=== PATIENT | female | born 1940 | race Two or more races ===

== ENCOUNTER 2017-08-26 14:00 | Emergency (ER) | payer OTHER ==
[2017-08-26 14:30] VITALS: BMI 21.2
--- NOTE | 2017-08-26 14:50 | PDOC ---
History of Present Illness - General History Source: Patient Exam Limitations: No Limitations - History of Present Illness Initial Comments: 08/26/17 15:07 The patient is a 77 year old female with signficant history of hypertension, DM , Alzheimer's dementia, sent from [place] for a cyst on her labia. No fever or chills. No nausea or vomiting. The patient is a poor historian and unable to provide remainder of history. PCP: Dr. Otis Baires <Manju Judge - Last Filed: 08/26/17 19:08> <Ashleigh Naqvi - Last Filed: 08/26/17 19:16> <August Torres - Last Filed: 08/26/17 19:54> - General Chief Complaint: Pain Stated Complaint: PAIN Time Seen by Provider: 08/26/17 14:41 Past History <Manju Judge - Last Filed: 08/26/17 19:08> <Ashleigh Naqvi - Last Filed: 08/26/17 19:16> - Past Medical History CVA: No COPD: No Dementia: Yes (Alzheimers) Diabetes: Yes (IDDM) HTN: Yes Hypercholesterolemia: Yes Other medical history: O2 2L Prn as per [place] records. - Suicide/Smoking/Psychosocial Hx Smoking History: Never smoked Have you smoked in the past 12 months: No Information on smoking cessation initiated: No Hx Alcohol Use: No Drug/Substance Use Hx: No Substance Use Type: None <August Torres - Last Filed: 08/26/17 19:54> - Past Medical History Home Medications: Ambulatory Orders Amox-Tr/K Cl [Augmentin - 875Mg Tablet] 1 tab PO BID #14 tablet 08/26/17 Amoxicillin/Potassium Clav [Augmentin 875-125 Tablet] 1 each PO BID #20 tablet 08/26/17 Review of Systems - Review of Systems Able to Perform ROS?: Yes Comments:: 08/26/17 15:46 A complete review of 10 out of 10 review of systems is taken and is negative apart from what is previously mentioned below and in the HPI. <Manju Judge - Last Filed: 08/26/17 19:08> *Physical Exam - Vital Signs Last Vital Signs Temp Pulse Resp BP Pulse Ox 97.7 F 98 H 20 156/79 99 08/26/17 14:17 08/26/17 14:17 08/26/17 14:17 08/26/17 14:17 08/26/17 14:17 - Physical Exam Comments: 08/26/17 15:46 Vitals: Triage vital signs reviewed General Appearance: No acute distress, well nourished, well developed Head: Atraumatic Eyes: Pupils equal reactive round, extraocular movement intact Neck: Supple; No nuchal rigidity Chest Wall: Nontender Cardiac: Regular rate and rhythm, no murmurs, no rubs, no gallops Lungs: Clear to auscultation bilateral, good air movement bilaterally Abdomen: Soft, nondistended, normal bowel sounds, nontender to palpation Genitourinary: R Bartholyn cyst abscess. Extremities: Full range of motion to all extremities, no cyanosis, clubbing, or edema Skin: Warm and dry, no rashes or lesions, no rash, no petechiae Psych: Normal mood, normal affect <Manju Judge - Last Filed: 08/26/17 19:08> - Vital Signs Last Vital Signs Temp Pulse Resp BP Pulse Ox 97.9 F 85 20 142/75 98 08/26/17 17:52 08/26/17 17:52 08/26/17 17:52 08/26/17 17:52 08/26/17 17:52 <Ashleigh Naqvi - Last Filed: 08/26/17 19:16> - Vital Signs Last Vital Signs Temp Pulse Resp BP Pulse Ox 97.7 F 98 H 20 156/79 99 08/26/17 14:17 08/26/17 14:17 08/26/17 14:17 08/26/17 14:17 08/26/17 14:17 <August Torres - Last Filed: 08/26/17 19:54> Procedures - Additional Procedures Additional Procedures: other (Chris Ring Cathether placement) <Ashleigh Naqvi - Last Filed: 08/26/17 19:16> Medical Decision Making - Medical Decision Making 08/26/17 19:08 77 yo F with history of HTN, DM, sent from [place] for evaluation of Bartholin's cyst. Plan: I&D by resident, reassess <Manju Judge - Last Filed: 08/26/17 19:08> - Medical Decision Making 08/26/17 15:11 Bartholin's gland abscess on examination. We'll drain and have patient follow up with SYSTEMS SPE[facility]. <August Torres - Last Filed: 08/26/17 19:54> *DC/Admit/Observation/Transfer - Attestations Scribe Attestion: 08/26/17 15:49 Documentation prepared by Manju Judge, acting as medical office technology instructor for August Torres MD. <Manju Judge - Last Filed: 08/26/17 19:08> <Ashleigh Naqvi - Last Filed: 08/26/17 19:16> <August Torres - Last Filed: 08/26/17 19:54> Diagnosis at time of Disposition: Infected cyst of Bartholin's gland duct - Prescriptions Prescriptions: Amox-Tr/K Cl [Augmentin - 875Mg Tablet] 1 tab PO BID #14 tablet Amoxicillin/Potassium Clav [Augmentin 875-125 Tablet] 1 each PO BID #20 tablet - Referrals Referrals: Otis Baires MD [Primary Care Provider] - - Patient Instructions Printed Discharge Instructions: DI for Incision and Drainage of a Skin Abscess Additional Instructions: Take Augmentin 875 mg twice a day for the next 10 days. Apply warm compresses to the affected area 3 times a day. Follow-up with SYSTEM[facility] within 3 days. Return to emergency department for any worsening redness pain and swelling infection fever or for any concerns. kennel assistant (referral provided to Dr. Bermudez) in the next 3 days. Return to the Emergency Department for any new/worsening/concerning symptoms. - Post Discharge Activity
[2017-08-26] MEDS ORDERED: LIDOCAINE HCL 2% (20ML MULTI-DOSE VIAL) NR ONE (15:35)
[2017-08-26 17:53] VITALS: PULSE 85
[2017-08-26] MEDS ORDERED: AMOX TR/POT CLAV 875MG/125MG TABLETS (FP) ONE (20:07)
[2017-08-26] MEDS ORDERED: AMOX TR/POT CLAV 875MG/125MG TABLETS (FP) PO ONE (20:15)
--- NOTE | 2017-08-26 20:15 | PDOC ---
*Physical Exam - Vital Signs Last Vital Signs Temp Pulse Resp BP Pulse Ox 97.9 F 85 20 142/75 98 08/26/17 17:52 08/26/17 17:52 08/26/17 17:52 08/26/17 17:52 08/26/17 17:52 Medical Decision Making - Medical Decision Making 08/26/17 20:[address] Torres, but "home" section of disposition was not checked off in chart. *DC/Admit/Observation/Transfer Diagnosis at time of Disposition: Infected cyst of Bartholin's gland duct - Discharge Dispostion Disposition: HOME Condition at time of disposition: Stable Admit: No - Prescriptions Prescriptions: Amox-Tr/K Cl [Augmentin - 875Mg Tablet] 1 tab PO BID #14 tablet Amoxicillin/Potassium Clav [Augmentin 875-125 Tablet] 1 each PO BID #20 tablet - Referrals Referrals: Otis Baires MD [Primary Care Provider] - - Patient Instructions Printed Discharge Instructions: DI for Incision and Drainage of a Skin Abscess Additional Instructions: Take Augmentin 875 mg twice a day for the next 10 days. Apply warm compresses to the affected area 3 times a day. Follow-up with BIN OPERATOR within 3 days. Return to emergency department for any worsening redness pain and swelling infection fever or for any concerns. glass enamel mixer (referral provided to Dr. Bermudez) in the next 3 days. Return to the Emergency Department for any new/worsening/concerning symptoms. - Post Discharge Activity
[2017-08-26 21:10] VITALS: BP 140/72; TEMP 98
== END 2017-08-26 20:15 | disposition home or self-care (01) ==
LOC: JER 14:00
PROC: 0U9L00Z Drainage of Vestibular Gland with Drainage Device, Open Approach (ICD-10-PCS; principal; 2017-08-26)
DX: N75.1 Abscess of Bartholin's gland (principal); E11.9 Type 2 diabetes mellitus without complications; I10 Essential (primary) hypertension; G30.9 Alzheimer's disease, unspecified; F02.80 Dementia in other diseases classified elsewhere, unspecified severity, without behavioral disturbance, psychotic disturbance, mood disturbance, and anxiety
CPT/HCPCS: 56420; 99283-25

== ENCOUNTER 2017-09-01 15:23 | Emergency (ER) | payer OTHER ==
[2017-09-01 15:27] VITALS: BP 131/66; PULSE 62; TEMP 98.4; BMI 17.4
--- NOTE | 2017-09-01 18:54 | PDOC ---
History of Present Illness - General History Source: Patient Exam Limitations: Dementia - History of Present Illness Initial Comments: 09/01/17 18:55 The patient is a 77 year old female with significant history of hypertension, DM , Alzheimer's dementia, sent from [place] for a cyst/mass on her labia. Patient reports a prior Bartholins cyst that was drained on 08/26/17 in our ER. However, patient reports she reaccumulated fluid in the same region. She reports associated right labial pain. She denies any recent fever, chills, cough, headache, or dizziness. She denies any nausea, vomiting, diarrhea, or constipation. She denies any dysuria, hematuria, frequency, or urgency. She denies any recent travel or sick contacts. Patient is a poor historian secondary to dementia. Patient denies that she is on any antibiotics, but per records she was discharged on Augmentin on 08/26/17. Allergies: Aspirin PCP: Dr. Baires <Mulu Disla - Last Filed: 09/01/17 18:55> - General History Source: Patient Exam Limitations: No Limitations, Dementia <Myra Mcleod - Last Filed: 10/21/17 08:31> - General Chief Complaint: Abscess Boil Stated Complaint: CYST ON RIGHT LABIAL Past History <Mulu Disla - Last Filed: 09/01/17 18:55> - Past Medical History CVA: No COPD: No Dementia: Yes (Alzheimers) Diabetes: Yes (IDDM) HTN: Yes Hypercholesterolemia: Yes - Suicide/Smoking/Psychosocial Hx Smoking History: Unknown if ever smoked Have you smoked in the past 12 months: No Information on smoking cessation initiated: No Hx Alcohol Use: No Drug/Substance Use Hx: No Substance Use Type: None <Myra Mcleod - Last Filed: 10/21/17 08:31> - Past Medical History Allergies/Adverse Reactions: Allergies Allergy/AdvReac Type Severity Reaction Status Date / Time aspirin Allergy Verified 09/01/17 15:25 Home Medications: Ambulatory Orders Sulfamethoxazole/Trimethoprim [Bactrim Ds Tablet] 2 each PO BID #40 tablet 09/01 Review of Systems - Review of Systems Able to Perform ROS?: Yes Comments:: 09/01/17 18:55 GENERAL/CONSTITUTIONAL: No fever or chills. No weakness. HEAD, EYES, EARS, NOSE AND THROAT: No change in vision. No ear pain or discharge. No sore throat. CARDIOVASCULAR: No chest pain or shortness of breath. RESPIRATORY: No cough, wheezing, or hemoptysis. GASTROINTESTINAL: No nausea, vomiting, diarrhea or constipation. GENITOURINARY: +Right labial cyst with associated pain. No dysuria, frequency, or change in urination. MUSCULOSKELETAL: No joint or muscle swelling or pain. No neck or back pain. SKIN: No rash NEUROLOGIC: No headache, vertigo, loss of consciousness, or change in strength/ sensation. ENDOCRINE: No increased thirst. No abnormal weight change. HEMATOLOGIC/LYMPHATIC: No anemia, easy bleeding, or history of blood clots. ALLERGIC/IMMUNOLOGIC: No hives or skin allergy. <Mulu Disla - Last Filed: 09/01/17 18:55> *Physical Exam - Vital Signs Last Vital Signs Temp Pulse Resp BP Pulse Ox 98.4 F 62 20 131/66 98 09/01/17 15:25 09/01/17 15:25 09/01/17 15:25 09/01/17 15:25 09/01/17 15:25 - Physical Exam Comments: 09/01/17 18:56 GENERAL: Awake, alert, and fully oriented, in no acute distress HEAD: No signs of trauma EYES: PERRLA, EOMI, sclera anicteric, conjunctiva clear ENT: Auricles normal inspection, hearing grossly normal, nares patent. Moist mucosa NECK: Normal ROM, supple, no lymphadenopathy, JVD, or masses LUNGS: Breath sounds equal, clear to auscultation bilaterally. No wheezes, and no crackles HEART: Regular rate and rhythm, normal S1 and S2, no murmurs, rubs or gallops ABDOMEN: Soft, nontender, normoactive bowel sounds. No guarding, no rebound. No masses GENITOURINARY:Right inferior labial mass 1x2 inches, indurated, no fluctuance; Clean dry intact, with no expressible purulence and minimal underlying erythema. EXTREMITIES: Normal range of motion, no edema. No clubbing or cyanosis. No cords, erythema, or tenderness. DP/PT pulses 2+ and symmetric. NEUROLOGICAL: Moves all extremities. Normal speech, normal gait SKIN: Warm, Dry, normal turgor, no rashes or lesions noted. <Mulu Disla - Last Filed: 09/01/17 18:55> - Vital Signs Last Vital Signs Temp Pulse Resp BP Pulse Ox 98.4 F 62 20 131/66 98 09/01/17 15:25 09/01/17 15:25 09/01/17 15:25 09/01/17 15:25 09/01/17 15:25 <Myra Mcleod - Last Filed: 10/21/17 08:31> ED Treatment Course - LABORATORY CBC & Chemistry Diagram: 09/01/17 20:20 09/01/17 20:20 <Myra Mcleod - Last Filed: 10/21/17 08:31> Medical Decision Making - Medical Decision Making 09/01/17 18:56 First call placed to Dr. Vivas at 18:54. Awaiting call back. <Mulu Disla - Last Filed: 09/01/17 18:55> - Medical Decision Making 09/01/17 18:53 77 yo F h/o alzheimers, recenlty i&D bartholins here with persistant right labial cyst/ mass. differetial cyst abscess, mass other such as node or tumor. plan OB/ Rider Ticket Worker consult labs reassess. will pg dr. Hutchison. <Myra Mcleod - Last Filed: 10/21/17 08:31> *DC/Admit/Observation/Transfer - Attestations Scribe Attestion: 09/01/17 18:56 Documentation prepared by Mulu Disla, acting as mobile paramedical examiner for Myra Mcleod MD. <Mulu Disla - Last Filed: 09/01/17 18:55> <Myra Mcleod - Last Filed: 10/21/17 08:31> Diagnosis at time of Disposition: Infected cyst of Bartholin's gland duct - Discharge Dispostion Disposition: [facility] Condition at time of disposition: Stable - Prescriptions Prescriptions: Sulfamethoxazole/Trimethoprim [Bactrim Ds Tablet] 2 each PO BID #40 tablet - Referrals Referrals: Otis Baires MD [Primary Care Provider] - Cliff Vivas MD [Staff Physician] - - Patient Instructions Additional Instructions: Please take the bactrim twice a day. Please follow up with Dr. Vivas on Tuesday in the office for further eval of the abscess. Please do sitz bathes daily. Please return to the Ed with any further concerns or complaints. - Post Discharge Activity
[2017-09-01 20:42] LABS: BASO % 0.8 % (0-2.0); EOS % 7.9 % (0-4.5); HEMATOCRIT 34.5 % (32.4-45.2); HEMOGLOBIN 12.2 GM/dL (10.7-15.3); LYMPH % 25.4 % (8-40); MCH 34.1 pg (25.7-33.7); MCHC 35.3 g/dl (32.0-36.0); MEAN CELL VOLUME 96.9 fl (80-96); MONO % 9.9 % (3.8-10.2); PLATELET COUNT 386 K/MM3 (134-434); RBC 3.56 M/mm3 (3.60-5.2); RDW 12.7 % (11.6-15.6); WHITE BLOOD COUNT 6.2 K/mm3 (4.0-10.0)
[2017-09-01 21:04] LABS: INR 0.96 (0.82-1.09); PROTHROMBIN TIME (PATIENT) 10.8 SEC (9.7-13.0)
[2017-09-01 21:06] LABS: ACTIVATED PTT 27.7 SECONDS (26.9-34.4)
[2017-09-01 21:16] LABS: ALBUMIN 2.8 g/dl (3.4-5.0); ANION GAP 6 (8-16); BILIRUBIN,TOTAL 0.1 mg/dL (0.2-1.0); BLOOD UREA NITROGEN 21 mg/dL (7-18); CHLORIDE 102 mmol/L (98-107); CO2 27 mmol/L (21-32); POTASSIUM 4.6 mmol/L (3.5-5.1); SGOT/AST 24 U/L (15-37); SGPT/ALT 51 U/L (12-78); SODIUM 135 mmol/L (136-145); TOT PROT 6.4 g/dl (6.4-8.2)
[2017-09-01 21:17] LABS: ALK PHOS 206 U/L (45-117)
[2017-09-01] MEDS ORDERED: SULFAMETHOXAZOLE/TRIMETHOPRIM 800MG/160MG D.S. TABLET PO ONE (21:17)
--- NOTE | 2017-09-01 21:17 | PDOC ---
*Physical Exam - Vital Signs Last Vital Signs Temp Pulse Resp BP Pulse Ox 98.4 F 62 20 131/66 98 09/01/17 15:25 09/01/17 15:25 09/01/17 15:25 09/01/17 15:25 09/01/17 15:25 - Physical Exam Comments: 09/01/17 21:13 Gen: awake, alert, palauan speaking, pleasantly demented heart: +s1s2 reg Lungs: cta b/l abd: soft, nt/nd +bs : R labial abscess/ bartholin cyst ext: no edema neuro: no focal deficits, pleasantly demented ED Treatment Course - LABORATORY CBC & Chemistry Diagram: 09/01/17 20:20 09/01/17 20:20 - ADDITIONAL ORDERS Additional order review: Laboratory Results 09/01/17 20:20 PT with INR 10.80 INR 0.96 PTT (Actin FS) 27.7 09/01/17 20:20 RBC 3.56 L MCV 96.9 H MCHC 35.3 RDW 12.7 MPV 7.0 L Neutrophils % 56.0 Lymphocytes % 25.4 Monocytes % 9.9 Eosinophils % 7.9 H Basophils % 0.8 Medical Decision Making - Medical Decision Making 09/01/17 21:14 a/p: 77yo female with R bartholin cyst abscess -pending washer cutter eval by Dr. Musa -pending labs 09/01/17 21:[address] musa - recommends wound cultures of the drainage start bactrim recommends being seen in the office Tuesday for i&d after sitz baths this 09/01/17 21:17 no elevated wbc 09/01/17 23:16 elevated glucose, gave insulin - glucose improving 09/01/17 23:16 stable for d/c to home, will recommend sitz bathes, bactrim BID, follow up with Dr. Musa on Tuesday *DC/Admit/Observation/Transfer Diagnosis at time of Disposition: Infected cyst of Bartholin's gland duct - Discharge Dispostion Disposition: [facility] Condition at time of disposition: Stable Admit: No - Prescriptions Prescriptions: Sulfamethoxazole/Trimethoprim [Bactrim Ds Tablet] 2 each PO BID #40 tablet - Referrals Referrals: Otis Baires MD [Primary Care Provider] - - Patient Instructions Additional Instructions: Please take the bactrim twice a day. Please follow up with Dr. Musa on Tuesday in the office for further eval of the abscess. Please do sitz bathes daily. Please return to the Ed with any further concerns or complaints. - Post Discharge Activity - Attestations Physician Attestion: 09/01/17 23:21 I, Dr. Suha Sharma, DO, attest that this document has been prepared under my direction and personally reviewed by me in its entirety. I further attest, that it accurately reflects all work, treatment, procedures and medical decision -making performed by me.
[2017-09-01 21:20] LABS: GLUCOSE,RANDOM 473 mg/dL (74-106)
[2017-09-01] MEDS ORDERED: INSULIN (NOVOLOG) ASPART 100 UNITS/ML 10ML VIAL ONE (21:50)
[2017-09-01] MEDS ORDERED: SULFAMETHOXAZOLE/TRIMETHOPRIM 800MG/160MG D.S. TABLET ONE (21:50)
[2017-09-01] MEDS ORDERED: INSULIN (NOVOLOG) ASPART 100 UNITS/ML 10ML VIAL SQ ONE (22:00)
[2017-09-02] MEDS ORDERED: Insulin (LOG) Aspart 100 UNITS/ML VIAL SQ ONE (21:36)
--- NOTE | 2017-09-04 07:57 | PDOC ---
Patient Follow-up (Call Back) - Post ED Follow - Up Condition at time of discharge: Stable Disposition at time of original discharge: [facility] Reason for Call Back: Abnwl. Microbiology (Wound culture on preliminary report shows presumptive MRSA. Patient currently on Bactrim. Will await final report.)
== END 2017-09-02 00:57 ==
LOC: JER 15:23
PROC: 3E033VG Introduction of Insulin into Peripheral Vein, Percutaneous Approach (ICD-10-PCS; principal; 2017-09-01)
DX: N75.0 Cyst of Bartholin's gland (principal); I10 Essential (primary) hypertension; E11.9 Type 2 diabetes mellitus without complications; G30.9 Alzheimer's disease, unspecified; F02.80 Dementia in other diseases classified elsewhere, unspecified severity, without behavioral disturbance, psychotic disturbance, mood disturbance, and anxiety; E78.00 Pure hypercholesterolemia, unspecified
CPT/HCPCS: 36415; 80053; 82962; 85025; 85610; 85730; 87070; 87186; 87205; 99282-25

== ENCOUNTER 2018-05-30 01:20 | Emergency (ER) | payer OTHER ==
--- NOTE | 2018-05-30 01:33 | PDOC ---
History of Present Illness - General Stated Complaint: VAGINAL CYST Time Seen by Provider: 05/30/18 01:33 - History of Present Illness Initial Comments: 05/30/18 01:36 Ms. Kim is an 78 yo female w/ pmh of HTN, DM, and alzheimer's dementia sent from [facility] for evaluation of reported vaginal pain and abscess. Patient has been evaluated in the past at this facility for bartholins cyst. Facility staff unable to provide further history upon call placed on arrival. Patient reports she has had pain for 1 day. Of note, patient is poor historian secondary to her dementia. The patient denies chest pain, shortness of breath, headache and dizziness. Denies fever, chills, nausea, vomit, diarrhea and constipation. Denies dysuria, frequency, urgency and hematuria. Past History - Past Medical History Allergies/Adverse Reactions: Allergies Allergy/AdvReac Type Severity Reaction Status Date / Time aspirin Allergy Verified 05/30/18 01:49 Home Medications: Ambulatory Orders Sulfamethoxazole/Trimethoprim [Bactrim Ds Tablet] 2 each PO BID #40 tablet 09/01 Clindamycin [Cleocin -] 150 mg PO TID #30 capsule 05/30/18 CVA: No COPD: No Dementia: Yes (Alzheimers) Diabetes: Yes (IDDM) HTN: Yes Hypercholesterolemia: Yes - Immunization History Immunization Up to Date: Yes - Suicide/Smoking/Psychosocial Hx Smoking History: Unknown if ever smoked Have you smoked in the past 12 months: No Hx Alcohol Use: No Drug/Substance Use Hx: No Substance Use Type: None Review of Systems - Review of Systems Comments:: 05/30/18 01:41 Unable to obtain further *Physical Exam - Physical Exam Comments: 05/30/18 01:41 GENERAL: Awake, alert, and oriented to baseline, in no acute distress HEAD: No signs of trauma, normocephalic, atraumatic EYES: PERRLA, EOMI, sclera anicteric, conjunctiva clear ENT: Auricles normal inspection, hearing grossly normal, nares patent, oropharynx clear without exudates. Moist mucosa NECK: Normal ROM, supple, no lymphadenopathy, JVD, or masses LUNGS: No distress, speaks full sentences, clear to auscultation bilaterally HEART: Regular rate and rhythm, normal S1 and S2, no murmurs, rubs or gallops, peripheral pulses normal and equal bilaterally. ABDOMEN: Soft, nontender, normoactive bowel sounds. No guarding, no rebound. No masses EXTREMITIES: Normal inspection, Normal range of motion, no edema. No clubbing or cyanosis. NEUROLOGICAL: Cranial nerves II through XII grossly intact. Normal speech, normal gait, no focal sensorimotor deficits SKIN: Warm, Dry, normal turgor, no rashes or lesions noted. VAGINAL: Cystocele noted to left side. Fluctuant mass approx. 1 cm in diameter noted to R labia majora. Small pimple noted in midline to upper pubic area. Medical Decision Making - Medical Decision Making 05/30/18 02:32 Ms. Kim is an 78 yo female w/ pmh as described who presents for evaluation of vaginal pain. Patient noted to have L cystocele as well as R labial fluctuant mass covered in scab. Right mass unroofed and culture sent. Appears more indurated after procedure than fluid filled. Patient BGM 132. Patient will be discharged with antibiosis started in ED with plan to have f/u w/ SMALL PIECE CUTTER for further evaluation. No other concerning process at this time. Discussed with nursing staff at [facility] who will continue clindamycin 150mg TID for 10 days. Discharging to home. *DC/Admit/Observation/Transfer Diagnosis at time of Disposition: Abscess Cystocele Qualifiers: Cystocele location: lateral Qualified Code(s): N81.12 - Cystocele, lateral - Discharge Dispostion Disposition: HOME Condition at time of disposition: Fair - Prescriptions Prescriptions: Clindamycin [Cleocin -] 150 mg PO TID #30 capsule - Referrals Referrals: Otis Baires MD [Primary Care Provider] - - Patient Instructions Printed Discharge Instructions: DI for Cystocele/Rectocele Additional Instructions: Susanna was evaluated and found to have a cystocele as well as a right labial abscess. We cultured and unroofed the abscess and have placed her on antibiotics for treatment. Continue to take clindamycin 150mg TID for 10 days. First dose was given in ED. She may take tylenol as needed for pain. Please have follow-up with SMALL PIECE CUTTER tomorrow for further evaluation. Return to ER if any further pain, fever, chills, - Post Discharge Activity
--- NOTE | 2018-05-30 01:34 | PDOC ---
Attending Attestation - Resident Resident Name: Kvng Abraham - ED Attending Attestation I have performed the following: I have examined & evaluated the patient, The case was reviewed & discussed with the resident, I agree w/resident's findings & plan - HPI HPI: 05/30/18 03:17 78-year-old female sent from her living facility with complaints of pain and swelling to the right vaginal area. According to transfer reports there is no history of fever trauma or vaginal bleeding. Patient has had similar problems in the past, and is unclear whether she has seen VACUUM FORM OPERATOR for definitive care. 05/30/18 03:34 - Physicial Exam PE: 05/30/18 03:24 agree with residents physical exam - Medical Decision Making 05/30/18 03:31 78 yo female with vaginal pain exam c/w a small labial abscess Lesion unroofed revealing no gross discharge Patient will be discharged on clindamycin with recommendations for 24 hour wound check
[2018-05-30 01:49] VITALS: BMI 23.2
[2018-05-30] MEDS ORDERED: CLINDAMYCIN HCL 150 MG CAPSULE (FP) PO ONE (02:43)
[2018-05-30] MEDS ORDERED: CLINDAMYCIN HCL 150 MG CAPSULE (FP) ONE (04:36)
[2018-05-30 04:55] VITALS: BP 111/61; PULSE 69; TEMP 97.8
== END 2018-05-30 05:00 | disposition home or self-care (01) ==
LOC: JER 01:20
DX: N76.4 Abscess of vulva (principal); N81.12 Cystocele, lateral; I10 Essential (primary) hypertension; E11.9 Type 2 diabetes mellitus without complications; E78.00 Pure hypercholesterolemia, unspecified; G30.8 Other Alzheimer's disease; F02.80 Dementia in other diseases classified elsewhere, unspecified severity, without behavioral disturbance, psychotic disturbance, mood disturbance, and anxiety
CPT/HCPCS: 87070; 87186; 87205; 99281-25

== ENCOUNTER 2023-07-22 13:06 | Observation (INO) | payer OTHER ==
[2023-07-22] MEDS ORDERED: HALOPERIDOL LACTATE 5 MG/ML ONE ×2 (14:53→17:13)
[2023-07-22] MEDS: HALOPERIDOL LACTATE 5 MG/ML IM ONE ×3 (15:00→17:25)
[2023-07-22 15:19] LABS: POTASSIUM 4.8 mmol/L (3.5-5.1)
[2023-07-22 15:22] LABS: CALCIUM 10.3 mg/dL (8.5-10.1)
[2023-07-22 15:23] LABS: ALBUMIN 3.7 g/dl (3.4-5.0); BLOOD UREA NITROGEN 13.8 mg/dL (7-18)
[2023-07-22 15:26] LABS: CREATININE 1.2 mg/dL (0.55-1.3)
[2023-07-22 15:27] LABS: TOT PROT 7.8 g/dl (6.4-8.2)
[2023-07-22 15:28] LABS: BILIRUBIN,TOTAL 0.6 mg/dL (0.2-1)
[2023-07-22] MEDS ORDERED: MIDAZOLAM HCL 5 MG/1 ML Single Dose Vial ONE ×2 (16:29→17:13)
[2023-07-22] MEDS: MIDAZOLAM HCL 5 MG/1 ML Single Dose Vial IM ONE ×2 (16:35→17:25)
[2023-07-22] MEDS: MIDAZOLAM HCL 5 MG/1 ML Single Dose Vial IVPUSH ONE (17:26)
[2023-07-22 18:40] LABS: VENOUS BASE EXCESS 3.7 mmol/L (-2-2); VENOUS O2 SATURATION 76.1 % (70-80); VENOUS PCO2 39.7 mmHg (38-52); VENOUS PH 7.461 (7.310-7.410)
[2023-07-22] MEDS: ACETAMINOPHEN 1000 MG/100 ML BAG IVPB ONE (18:54)
[2023-07-22 18:57] LABS: BASO % 0.6 % (0-2.0); EOS % 1.6 % (0-4.5); HEMATOCRIT 37.8 % (32.4-45.2); HEMOGLOBIN 12.9 GM/dL (10.7-15.3); LYMPH % 11.7 % (8-40); MCH 30.3 pg (25.7-33.7); MEAN CELL VOLUME 88.9 fl (80-96); MEAN PLT VOLUME 7.8 fl (7.5-11.1); MONO % 8.1 % (3.8-10.2); PLATELET COUNT 372 10^3/uL (134-434); RBC 4.26 M/mm3 (3.60-5.2); RDW 12.8 % (11.6-15.6); WHITE BLOOD COUNT 10.5 K/mm3 (4.0-10.0)
[2023-07-22 19:04] LABS: INR 1.09 (0.83-1.09); PROTHROMBIN TIME (PATIENT) 12.6 SEC (9.7-13.0)
[2023-07-22 19:06] LABS: ACTIVATED PTT 26.4 SECONDS (25.2-36.5)
[2023-07-22 19:12] LABS: PH,URINE 5.5 (5.0-8.0); URINE APPEARANCE CLEAR; URINE BILIRUBIN NEGATIVE (NEGATIVE); URINE COLOR YELLOW; URINE GLUCOSE (UA) 3+ (NEGATIVE); URINE KETONE TRACE (NEGATIVE); URINE LEUK ESTERASE NEGATIVE (NEGATIVE); URINE NITRITE NEGATIVE (NEGATIVE); URINE PROTEIN TRACE (NEGATIVE); URINE UROBILINOGEN 0.2 mg/dL (0.2-1.0)
[2023-07-22] MEDS: ALBUTEROL SO4 2.5/IPRATROPIUM 0.5 INH SOL 3 ML VIAL.NEB. NEB SCH (19:45)
[2023-07-22] MEDS ORDERED: INSULIN (NOVOLOG) ASPART 100 UNITS/ML 10ML VIAL ONE (21:44)
[2023-07-22] MEDS: SODIUM CHLORIDE 1,000 ML IV SCH (21:52)
[2023-07-22] MEDS: INSULIN ASPART SLIDING SCALE (NOVOLOG) 1 VIAL SQ SCH (21:52)
[2023-07-22] MEDS ORDERED: HEPARIN NA (PORCINE) 5,000 UNITS/ML 1ML VIAL ONE (22:06)
[2023-07-22] MEDS ORDERED: ATORVASTATIN CA 10 MG TABLET (FP) ONE (22:06)
[2023-07-22] MEDS: ATORVASTATIN CA 10 MG TABLET (FP) PO SCH (22:07)
[2023-07-22] MEDS: HEPARIN NA (PORCINE) 5,000 UNITS/ML 1ML VIAL SQ SCH (22:07)
[2023-07-22] MEDS ORDERED: hydrOXYzine HCL 10 MG/5 ML LIQUID BULK BOTTLE PO PRN (23:26)
[2023-07-23 08:39] LABS: BASO % 0.3 % (0-2.0); EOS % 2.7 % (0-4.5); HEMOGLOBIN 12.5 GM/dL (10.7-15.3); LYMPH % 24.8 % (8-40); MCH 30.3 pg (25.7-33.7); MEAN CELL VOLUME 89.3 fl (80-96); MEAN PLT VOLUME 7.6 fl (7.5-11.1); MONO % 10.6 % (3.8-10.2); NEUT % 61.6 % (42.8-82.8); PLATELET COUNT 360 10^3/uL (134-434); RBC 4.14 M/mm3 (3.60-5.2); RDW 12.7 % (11.6-15.6); WHITE BLOOD COUNT 10.4 K/mm3 (4.0-10.0)
[2023-07-23 08:47] LABS: POTASSIUM 3.8 mmol/L (3.5-5.1)
[2023-07-23 08:55] LABS: MAGNESIUM 1.8 mg/dL (1.8-2.4)
[2023-07-23 08:57] LABS: CREATININE 0.9 mg/dL (0.55-1.3)
[2023-07-23 08:59] LABS: BILIRUBIN,TOTAL 0.5 mg/dL (0.2-1); TOT PROT 6.2 g/dl (6.4-8.2)
[2023-07-23] MEDS: POLYETHYLENE GLYCOL (HEALTHYLAX) 3350 17 GM PACKET PO SCH (09:25)
[2023-07-23] MEDS ORDERED: ENOXAPARIN NA (PORCINE) 40 MG/0.4 ML DISP.SYRIN SQ SCH (10:00)
[2023-07-23] MEDS: THIAMINE HCL 100 MG TABLET (FP) PO SCH (10:14)
[2023-07-23] MEDS: SODIUM CHLORIDE 1,000 ML IV SCH (10:14)
[2023-07-23] MEDS: ASCORBIC ACID 500 MG TABLET (FP) PO SCH (10:14)
[2023-07-23] MEDS: ENALAPRIL MALEATE 10 MG TABLET PO SCH (10:14)
[2023-07-23] MEDS ORDERED: ACETAMINOPHEN 325 MG TABLET (FP) PO PRN (10:37)
[2023-07-23] MEDS: INSULIN (LEVEMIR) 100 UNITS/ML UNITS SQ SCH ×2 (11:01→21:33)
[2023-07-23] MEDS: QUEtiapine FUMARATE 25 MG TABLET PO SCH (16:19)
[2023-07-23] MEDS: MIRTAZAPINE 15 MG TABLET (FP) PO SCH (21:33)
[2023-07-24 14:14] VITALS: BMI 25.4
[2023-07-24] MEDS ORDERED: INSULIN (NOVOLOG) ASPART 100 UNITS/ML 10ML VIAL ONE ×3 (17:41→21:10)
[2023-07-24] MEDS: hydrOXYzine HCL 10 MG/5 ML LIQUID BULK BOTTLE PO PRN (19:45)
[2023-07-24] MEDS: LORazepam 2 MG/ML SDV VIAL IVPUSH ONE (20:54)
[2023-07-24] MEDS: HEPARIN NA (PORCINE) 5,000 UNITS/ML 1ML VIAL SQ SCH (21:20)
[2023-07-24] MEDS: INSULIN (LEVEMIR) 100 UNITS/ML UNITS SQ SCH (21:21)
[2023-07-24] MEDS: INSULIN ASPART SLIDING SCALE (NOVOLOG) 1 VIAL SQ SCH (21:23)
[2023-07-24] MEDS: ATORVASTATIN CA 10 MG TABLET (FP) PO SCH (21:23)
[2023-07-24] MEDS: MIRTAZAPINE 15 MG TABLET (FP) PO SCH (21:24)
[2023-07-25] MEDS: POLYETHYLENE GLYCOL (HEALTHYLAX) 3350 17 GM PACKET PO SCH (09:29)
[2023-07-25] MEDS: QUEtiapine FUMARATE 25 MG TABLET PO SCH (09:29)
[2023-07-25] MEDS: ASCORBIC ACID 500 MG TABLET (FP) PO SCH (09:30)
[2023-07-25] MEDS: THIAMINE HCL 100 MG TABLET (FP) PO SCH (09:30)
[2023-07-25] MEDS: ENALAPRIL MALEATE 10 MG TABLET PO SCH (09:36)
[2023-07-25] MEDS: INSULIN (LEVEMIR) 100 UNITS/ML UNITS SQ SCH (09:38)
[2023-07-25] MEDS ORDERED: INSULIN (NOVOLOG) ASPART 100 UNITS/ML 10ML VIAL ONE (12:43)
[2023-07-25 14:15] VITALS: RESP 20
[2023-07-26 05:57] VITALS: BP 148/58; PULSE 86; TEMP 99
[2023-07-26] MEDS: INSULIN (LEVEMIR) 100 UNITS/ML UNITS SQ SCH (06:10)
[2023-07-26] MEDS: ACETAMINOPHEN 325 MG TABLET (FP) PO PRN (10:28)
== END 2023-07-26 11:55 ==
LOC: JER 13:06 → JERBED 19:37 → J4S 07-23 01:42 → J8W 07-24 17:12
PROVIDERS: ADMIT Internal Medicine; ATTEND Nurse Practitioner Family
PROC: 3E023GC Introduction of Other Therapeutic Substance into Muscle, Percutaneous Approach (ICD-10-PCS; principal; 2023-07-22)
PROC: 3E013VG Introduction of Insulin into Subcutaneous Tissue, Percutaneous Approach (ICD-10-PCS; 2023-07-22)
DX: R41.82 Altered mental status, unspecified (principal); S09.90XA Unspecified injury of head, initial encounter; G30.9 Alzheimer's disease, unspecified; F02.80 Dementia in other diseases classified elsewhere, unspecified severity, without behavioral disturbance, psychotic disturbance, mood disturbance, and anxiety; E78.5 Hyperlipidemia, unspecified; I10 Essential (primary) hypertension; E11.9 Type 2 diabetes mellitus without complications; W18.39XA Other fall on same level, initial encounter; G93.41 Metabolic encephalopathy; Y93.89 Activity, other specified; Y92.099 Unspecified place in other non-institutional residence as the place of occurrence of the external cause; R45.1 Restlessness and agitation; Z88.8 Allergy status to other drugs, medicaments and biological substances
CPT/HCPCS: 0241U-QW; 36415; 70450-TC; 71045-TC-FY; 72125-TC; 72170-TC-FY; 80053; 80061; 81003; 82550; 82553; 82803; 82962; 83036; 83735; 83880; 84100; 84439; 84443; 84484; 85025; 85610; 85730; 86850; 86900; 86901; 87040; 87081; 87086; 93005; 93010; 96361; 96372; 96374; 97116-GP; 99285-25; G0378; J1644

== ENCOUNTER 2024-02-03 22:27 | Inpatient (IN) | payer OTHER ==
[2024-02-03] MEDS ORDERED: HALOPERIDOL LACTATE 5 MG/ML ONE ×2 (23:49→23:57)
[2024-02-03] MEDS: HALOPERIDOL LACTATE 5 MG/ML IM ONE (23:58)
[2024-02-03] MEDS: LORazepam 2 MG/ML SDV VIAL IM ONE (23:58)
[2024-02-04] MEDS ORDERED: MIDAZOLAM HCL 5 MG/1 ML Single Dose Vial ONE (00:03)
[2024-02-04] MEDS: HALOPERIDOL LACTATE 5 MG/ML IM ONE (00:06)
[2024-02-04] MEDS: MIDAZOLAM HCL 5 MG/1 ML Single Dose Vial IM ONE (00:06)
[2024-02-04] MEDS: SODIUM CHLORIDE 0.9% 500 ML INFUS.BAG IV ONE (00:21)
[2024-02-04 00:36] LABS: BASO % 0.1 % (0-2.0); HEMOGLOBIN 14.9 GM/dL (10.7-15.3); LYMPH % 20.1 % (8-40); MCH 30.4 pg (25.7-33.7); MCHC 33.1 g/dl (32.0-36.0); MEAN CELL VOLUME 91.6 fl (80-96); MEAN PLT VOLUME 8.1 fl (7.5-11.1); MONO % 6.1 % (3.8-10.2); NEUT % 73.7 % (42.8-82.8); PLATELET COUNT 389 10^3/uL (134-434); RBC 4.91 M/mm3 (3.60-5.2); RDW 13.5 % (11.6-15.6); VENOUS BASE EXCESS -9.4 mmol/L (-2-2); VENOUS O2 SATURATION 84.6 % (70-80); VENOUS PCO2 36.5 mmHg (38-52); VENOUS PH 7.273 (7.310-7.410); WHITE BLOOD COUNT 18.1 K/mm3 (4.0-10.0)
[2024-02-04 01:44] LABS: CHLORIDE 97 mmol/L (98-107); POTASSIUM 3.8 mmol/L (3.5-5.1); SODIUM 137 mmol/L (136-145)
[2024-02-04 01:45] LABS: CALCIUM 10.7 mg/dL (8.5-10.1)
[2024-02-04 01:46] LABS: ALBUMIN 4.2 g/dl (3.4-5.0); ANION GAP 24 mmol/L (4-13); BLOOD UREA NITROGEN 23.7 mg/dL (7-18); CO2 17 mmol/L (21-32)
[2024-02-04 01:48] LABS: CREATININE 1.8 mg/dL (0.55-1.3); SGPT/ALT 29 U/L (13-61)
[2024-02-04 01:50] LABS: BILIRUBIN,TOTAL 0.4 mg/dL (0.2-1)
[2024-02-04 01:52] LABS: ALK PHOS 88 U/L (45-117); HIV INTERPRETATION NEGATIVE (NEGATIVE)
[2024-02-04 02:02] LABS: GLUCOSE,RANDOM 431 mg/dL (74-106)
[2024-02-04 02:16] LABS: EPI CELLS 17 /uL (0-25.1); HYALINE CASTS 0 /uL (0-3.1); PH,URINE 5.5 (5.0-8.0); URINE APPEARANCE CLEAR; URINE BACTERIA 158 /uL (0-1359); URINE BILIRUBIN NEGATIVE (NEGATIVE); URINE COLOR YELLOW; URINE GLUCOSE (UA) 3+ (NEGATIVE); URINE KETONE 2+ (NEGATIVE); URINE LEUK ESTERASE NEGATIVE (NEGATIVE); URINE NITRITE NEGATIVE (NEGATIVE); URINE PROTEIN 2+ (NEGATIVE); URINE UROBILINOGEN 0.2 mg/dL (0.2-1.0); URINE WBC 26 /uL (0-25.8)
[2024-02-04 02:17] LABS: URINE RBC 27.1 /uL (0-23.9)
[2024-02-04] MEDS ORDERED: INSULIN REGULAR HUMAN 100 UNITS/ML *VIAL ONE (02:27)
[2024-02-04 03:04] LABS: SGOT/AST < 15 U/L (15-37)
[2024-02-04] MEDS: POTASSIUM CHLORIDE 20 MEQ in SODIUM CHLORIDE 1,000 ML IV STA ×2 (03:10→03:49)
[2024-02-04] MEDS: INSULIN REGULAR 100 UNITS in SODIUM CHLORIDE 99 ML IVPB SCH (03:10)
[2024-02-04] MEDS: POTASSIUM CHLORIDE 10 MEQ in SODIUM CHLORIDE 1,000 ML IV STA (03:14)
[2024-02-04] MEDS: INSULIN REGULAR HUMAN 100 UNITS/ML *VIAL* (FOR IVP) IVPUSH ONE (03:14)
[2024-02-04 05:27] LABS: VENOUS BASE EXCESS -7.5 mmol/L (-2-2); VENOUS O2 SATURATION 77.1 % (70-80); VENOUS PCO2 28.9 mmHg (38-52); VENOUS PH 7.377 (7.310-7.410)
[2024-02-04 05:35] LABS: CHLORIDE 136 mmol/L (98-107); SODIUM 150 mmol/L (136-145)
[2024-02-04 05:37] LABS: BLOOD UREA NITROGEN 13.1 mg/dL (7-18); CO2 19 mmol/L (21-32); GLUCOSE,RANDOM 94 mg/dL (74-106); MAGNESIUM 1.2 mg/dL (1.8-2.4)
[2024-02-04 05:40] LABS: CREATININE 0.4 mg/dL (0.55-1.3); PHOSPHOROUS 1.2 mg/dL (2.5-4.9)
[2024-02-04 05:43] LABS: ANION GAP -5 mmol/L (4-13); CALCIUM 5.5 mg/dL (8.5-10.1); POTASSIUM > 10.0 mmol/L (3.5-5.1)
[2024-02-04 07:00] VITALS: BMI 25.3
[2024-02-04] MEDS: INSULIN ASPART SLIDING SCALE (NOVOLOG) 1 VIAL SQ SCH (08:01)
[2024-02-04] MEDS: SODIUM CHLORIDE 1,000 ML IV SCH (08:01)
[2024-02-04] MEDS: INSULIN (LEVEMIR) 100 UNITS/ML UNITS SQ SCH (08:02)
[2024-02-04 08:51] LABS: BASO % 0.1 % (0-2.0); HEMATOCRIT 37.8 % (32.4-45.2); HEMOGLOBIN 12.7 GM/dL (10.7-15.3); LYMPH % 12.4 % (8-40); MCH 30.4 pg (25.7-33.7); MCHC 33.5 g/dl (32.0-36.0); MEAN CELL VOLUME 90.5 fl (80-96); MEAN PLT VOLUME 7.7 fl (7.5-11.1); MONO % 8.5 % (3.8-10.2); PLATELET COUNT 273 10^3/uL (134-434); RBC 4.17 M/mm3 (3.60-5.2); RDW 13.1 % (11.6-15.6); WHITE BLOOD COUNT 14.3 K/mm3 (4.0-10.0)
[2024-02-04 08:56] LABS: INR 0.98 (0.83-1.09); PROTHROMBIN TIME (PATIENT) 11.1 SEC (9.7-13.0)
[2024-02-04 08:59] LABS: ACTIVATED PTT 22.6 SECONDS (25.2-36.5)
[2024-02-04] MEDS: HEPARIN NA (PORCINE) 5,000 UNITS/ML 1ML VIAL SQ SCH (09:17)
[2024-02-04] MEDS: PANTOPRAZOLE SODIUM 40 MG VIAL IVPUSH SCH (09:17)
[2024-02-04 09:19] LABS: POTASSIUM 3.8 mmol/L (3.5-5.1)
[2024-02-04 09:22] LABS: ALBUMIN 3.5 g/dl (3.4-5.0); BLOOD UREA NITROGEN 18.9 mg/dL (7-18); MAGNESIUM 2.3 mg/dL (1.8-2.4)
[2024-02-04 09:24] LABS: CALCIUM 9.3 mg/dL (8.5-10.1); CREATININE 0.9 mg/dL (0.55-1.3); PHOSPHOROUS 1.8 mg/dL (2.5-4.9)
[2024-02-04 09:25] LABS: BILIRUBIN,TOTAL 0.4 mg/dL (0.2-1)
[2024-02-04 09:26] LABS: TOT PROT 6.5 g/dl (6.4-8.2)
[2024-02-04 09:37] LABS: ARTERIAL BLD GAS O2 SATURATION 97.3 % (95-98); ARTERIAL BLOOD GAS BASE EXCESS 1.7 mmol/L (-2-2); ARTERIAL BLOOD GAS pH 7.416 (7.350-7.450)
[2024-02-04 09:39] LABS: ALLENS TEST POSITIVE
[2024-02-04] MEDS: MUPIROCIN 2% TOPICAL OINTMENT FOR DECOLONIZATION NS SCH (09:49)
[2024-02-04] MEDS: POTASSIUM PHOSPHATE 15 MM in SODIUM CHLORIDE 100 ML IVPB ONE (09:57)
[2024-02-04] MEDS: ENALAPRIL MALEATE 10 MG TABLET PO ONE (13:05)
[2024-02-04] MEDS: SERTRALINE HCL 25 MG TABLET (FP) PO ONE (17:10)
[2024-02-04] MEDS: ATORVASTATIN CA 10 MG TABLET (FP) PO SCH (21:20)
[2024-02-04] MEDS: THIAMINE 100 MG TABLET PO SCH (21:20)
[2024-02-04] MEDS: CHLORHEXIDINE GLUCONATE 4% CLEANSER FOR DECOLONIZATION TP SCH (21:20)
[2024-02-04] MEDS: MIRTAZAPINE 15 MG TABLET (FP) PO SCH (21:20)
[2024-02-04] MEDS: QUEtiapine FUMARATE 25 MG TABLET PO SCH (21:21)
[2024-02-05] MEDS: INSULIN ASPART SLIDING SCALE (NOVOLOG) 1 VIAL SQ SCH (01:03)
[2024-02-05] MEDS: INSULIN (LEVEMIR) 100 UNITS/ML UNITS SQ SCH (06:02)
[2024-02-05 07:21] LABS: BASO % 1.5 % (0-2.0); EOS % 1.9 % (0-4.5); HEMATOCRIT 40.7 % (32.4-45.2); HEMOGLOBIN 13.7 GM/dL (10.7-15.3); LYMPH % 30.6 % (8-40); MCH 30.6 pg (25.7-33.7); MCHC 33.6 g/dl (32.0-36.0); MEAN PLT VOLUME 7.5 fl (7.5-11.1); MONO % 7.6 % (3.8-10.2); NEUT % 58.4 % (42.8-82.8); PLATELET COUNT 275 10^3/uL (134-434); RBC 4.47 M/mm3 (3.60-5.2); RDW 13.3 % (11.6-15.6); WHITE BLOOD COUNT 10.7 K/mm3 (4.0-10.0)
[2024-02-05 07:35] LABS: POTASSIUM 3.3 mmol/L (3.5-5.1)
[2024-02-05 07:36] LABS: CALCIUM 9.2 mg/dL (8.5-10.1)
[2024-02-05 07:37] LABS: ALBUMIN 3.5 g/dl (3.4-5.0); BLOOD UREA NITROGEN 9.2 mg/dL (7-18); MAGNESIUM 1.9 mg/dL (1.8-2.4)
[2024-02-05 07:40] LABS: CREATININE 0.7 mg/dL (0.55-1.3)
[2024-02-05 07:41] LABS: BILIRUBIN,TOTAL 0.6 mg/dL (0.2-1)
[2024-02-05 07:42] LABS: TOT PROT 6.7 g/dl (6.4-8.2)
[2024-02-05] MEDS ORDERED: ENALAPRIL MALEATE 10 MG TABLET PO SCH (10:00)
[2024-02-05] MEDS ORDERED: POLYETHYLENE GLYCOL (HEALTHYLAX) 3350 17 GM PACKET PO SCH (10:00)
[2024-02-05] MEDS: PANTOPRAZOLE SODIUM 40 MG VIAL IVPUSH SCH (10:40)
[2024-02-05] MEDS: ENALAPRIL MALEATE 10 MG TABLET PO SCH (10:40)
[2024-02-05] MEDS: POLYETHYLENE GLYCOL (HEALTHYLAX) 3350 17 GM PACKET PO SCH (10:40)
[2024-02-05] MEDS: HEPARIN NA (PORCINE) 5,000 UNITS/ML 1ML VIAL SQ SCH (10:40)
[2024-02-05] MEDS: POTASSIUM CHLORIDE TABS 20 MEQ TABLET.ER (FP) PO SCH (16:46)
[2024-02-05] MEDS: ATORVASTATIN CA 10 MG TABLET (FP) PO SCH (23:02)
[2024-02-05] MEDS: MIRTAZAPINE 15 MG TABLET (FP) PO SCH (23:03)
[2024-02-05] MEDS: QUEtiapine FUMARATE 25 MG TABLET PO SCH (23:03)
[2024-02-05] MEDS: THIAMINE 100 MG TABLET PO SCH (23:03)
[2024-02-06 10:06] LABS: BASO % 0.9 % (0-2.0); EOS % 2.3 % (0-4.5); HEMATOCRIT 42.9 % (32.4-45.2); HEMOGLOBIN 14.3 GM/dL (10.7-15.3); LYMPH % 34.5 % (8-40); MCH 30.4 pg (25.7-33.7); MCHC 33.3 g/dl (32.0-36.0); MEAN CELL VOLUME 91.3 fl (80-96); MEAN PLT VOLUME 8.4 fl (7.5-11.1); MONO % 10.4 % (3.8-10.2); NEUT % 51.9 % (42.8-82.8); PLATELET COUNT 278 10^3/uL (134-434)
[2024-02-06 10:08] LABS: POTASSIUM 4.2 mmol/L (3.5-5.1)
[2024-02-06 10:11] LABS: CALCIUM 9.6 mg/dL (8.5-10.1)
[2024-02-06 10:12] LABS: ALBUMIN 3.5 g/dl (3.4-5.0); BLOOD UREA NITROGEN 10.7 mg/dL (7-18); MAGNESIUM 2.3 mg/dL (1.8-2.4)
[2024-02-06 10:15] LABS: CREATININE 0.9 mg/dL (0.55-1.3)
[2024-02-06 10:17] LABS: BILIRUBIN,TOTAL 0.7 mg/dL (0.2-1)
[2024-02-06 10:20] LABS: TOT PROT 6.8 g/dl (6.4-8.2)
[2024-02-06 12:15] VITALS: RESP 18
[2024-02-07] MEDS: INSULIN (LEVEMIR) 100 UNITS/ML UNITS SQ SCH (06:06)
[2024-02-07] MEDS: INSULIN (NOVOLOG) ASPART 100 UNITS/ML 10ML VIAL SQ SCH (15:06)
[2024-02-07] MEDS: INSULIN (NOVOLOG) ASPART 100 UNITS/ML 10ML VIAL SQ ONE (15:36)
[2024-02-07] MEDS: INSULIN (LEVEMIR) 100 UNITS/ML UNITS SQ ONE (20:18)
[2024-02-08] MEDS ORDERED: HALOPERIDOL LACTATE 5 MG/ML IM ONE (06:39)
[2024-02-08] MEDS: INSULIN (LEVEMIR) 100 UNITS/ML UNITS SQ SCH (06:49)
[2024-02-08] MEDS: INSULIN (NOVOLOG) ASPART 100 UNITS/ML 10ML VIAL SQ SCH (09:06)
[2024-02-08] MEDS: INSULIN (NOVOLOG) ASPART 100 UNITS/ML 10ML VIAL SQ ONE (10:10)
[2024-02-08 11:06] VITALS: BP 136/75; PULSE 81; TEMP 98.4
== END 2024-02-08 12:15 | DRG 638 ==
LOC: JER 22:27 → JERBED 02-04 03:00 → JICU 02-04 05:29 → J6S 02-04 22:56
PROVIDERS: ADMIT Internal Medicine Pulmonary Disease; ATTEND Internal Medicine
DX: E11.10 Type 2 diabetes mellitus with ketoacidosis without coma (principal); F02.811 Dementia in other diseases classified elsewhere, unspecified severity, with agitation; N17.9 Acute kidney failure, unspecified; G30.9 Alzheimer's disease, unspecified
CPT/HCPCS: 0241U-QW; 36415; 36600; 71045-TC-FY; 80048; 80053; 81003; 82010; 82150; 82308; 82550; 82553; 82803; 82962; 83036; 83605; 83690; 83735; 83880; 84100; 84436; 84443; 84484; 85025; 85610; 85730; 86803; 86850; 86900; 86901; 87086; 87186; 87389; 93005; 93010; 93306-TC; 97116-GP; 97161-GP; 99285-25; J1644